=== PATIENT | female | born 1955 | race Caucasian/White ===

== ENCOUNTER → 2019-05-31 | Outpatient (CLI) | payer MEDICARE, OTHER ==
[~2019-05-31] MED LIST: BONIVA150 MG PO; FLONASE NASAL S16 GM NS; MULTIPLE VITAMI1 CTB PO; NEXIUM 40MG40 MG PO; NITROSTAT0.4 MG/TAB SL; TOPROL XL 25MG25 MG PO; VIACTIV 500 MG-1 CT1 PO
== END ==
LOC: MC.RAD 13:24
DX: Z12.31 Encounter for screening mammogram for malignant neoplasm of breast (principal); N63.11 Unspecified lump in the right breast, upper outer quadrant; Z98.890 Other specified postprocedural states; Z98.82 Breast implant status

== ENCOUNTER → 2019-06-05 | Outpatient (CLI) | payer MEDICARE, OTHER | LOC: MC.RAD 13:48 | DX: N60.01 Solitary cyst of right breast (principal) ==

== ENCOUNTER → 2020-06-08 | Outpatient (CLI) | payer MEDICARE, OTHER | LOC: MC.RAD 09:34 | DX: Z12.31 Encounter for screening mammogram for malignant neoplasm of breast (principal) ==